=== PATIENT | female | born 1965 | race Caucasian/White ===

== ENCOUNTER 2021-07-05 17:56 | Inpatient (IN) | payer OTHER, SELFPAY ==
[~2021-07-05] VITALS: Ht 147.3 cm; Wt 79.4 kg
--- NOTE | 2021-07-05 18:00 | NUR ---
Patient triaged and placed in waiting room. VSS and patient appears in no acute distress at this time. Accompanied by family, awaiting available bed, and MD notified of need for MSE.
--- NOTE | 2021-07-05 18:05 | NUR ---
Pt brought by daughter, A&Ox4 , pt presents to ER with lower back pain, fever and weakness, skin pink and warm, respirations even and unlabored, cap refill <3, will cont to monitor.
[2021-07-05 18:06] VITALS: BP_SYST 117
--- NOTE | 2021-07-05 18:45 | NUR ---
Dr Kidd evaluating patient at bedside
--- NOTE | 2021-07-05 22:00 | NUR ---
Received patient to ER w/ c/o lower back pain since yesterday and fever since Saturday after receiving Pfizer vaccine. Introduced self to patient, positioned for comfort. Bed to low position sr up, cooling measures in effect. Patient resting quietly. No acute distress noted. Vital signs within normal range.
--- NOTE | 2021-07-05 22:00 | NUR ---
Placed in room 04 . Placed on cardiac specialist, blood pressure machine and pulse oximeter. To gown for exam. Side rails up.
--- NOTE | 2021-07-05 22:15 | NUR ---
# 22 gauge angiocath placed to RAC. Use of asceptic technique. Opsite placed over site. Blood return noted. Blood for lab drawn from site. Flushed with 10 cc of normal saline. No evidence of infiltration noted. Patient tolerated well.
[2021-07-05 23:02] LABS: BILIRUBIN,URINE NEGATIVE (NEGATIVE); BLOOD, URINE NEGATIVE (NEGATIVE); CLARITY/URINE TURBID (CLEAR); COLOR,URINE YELLOW (YELLOW); GLUCOSE,URINE 2+ (NEGATIVE); KETONES,URINE 1+ (NEGATIVE); LEUKOCYTE ESTERASE ,URINE TRACE (NEGATIVE); NITRITE, URINE NEGATIVE (NEGATIVE); PROTEIN URINE 1+ (NEGATIVE); UROBILINOGEN,URINE 0.2 (0.2-1.0)
[2021-07-05 23:13] LABS: BASOPHILS % (AUTO) 0.3 % (0.0-2.0); HEMATOCRIT 42.7 % (36-48); HEMOGLOBIN 14.9 g/dL (12.0-16.0); LYMPHOCYTES # (AUTO) 0.6 K/uL (1.0-5.5); MEAN CORPUSCULAR HEMOGLOBIN 29 pg (27-31); MEAN CORPUSCULAR HGB CONC 35 % (32-36); MEAN CORPUSCULAR VOLUME 82 fL (79.0-98.0); MONOCYTES # (AUTO) 0.4 K/uL (0.0-1.0); MONOCYTES % (AUTO) 6.3 % (1.7-9.3); NEUTROPHILS # (AUTO) 5.3 K/uL (1.8-7.7); NEUTROPHILS % (AUTO) 84.4 % (40.0-70.0); PLATELET COUNT (AUTO) 175 K/uL (130-430); RED BLOOD CELL COUNT(AUTO) 5.19 MIL/uL (4.2-6.2); RED CELL DISTRIBUTION WIDTH 13.1 % (9.0-15.0); WHITE BLOOD COUNT (AUTO) 6.3 K/uL (4.8-10.8)
[2021-07-05 23:54] LABS: CALCIUM 8.4 mg/dL (8.4-11.0); CREATININE 0.82 mg/dL (0.55-1.30); POTASSIUM 3.3 mmol/L (3.5-5.1)
[2021-07-06] LABS: ALBUMIN 3.5 g/dL (3.4-4.8); C-REACTIVE PROTEIN QUANT 3.4 mg/dL (0-0.5); TOTAL BILIRUBIN 0.6 mg/dL (0.0-1.0)
[2021-07-06 00:02] LABS: PROTHROMBIN TIME 10.6 SECS (9.5-12.5)
--- NOTE | 2021-07-06 00:30 | NUR ---
Patient resting quietly. No acute distress noted. Vital signs within normal range. awaiting MD kendall.
[2021-07-06 00:45] LABS: BACTERIA,URINE MODERATE /HPF (None Seen); WBC,URINE 20-50 /HPF (0-3)
[2021-07-06] MEDS ORDERED: NACL 0.9% 1,000 ML IV ONE (01:30)
[2021-07-06] MEDS ORDERED: cefTRIAXone 1 GM IVPB PREMIX 50 ML IV ONE ×2 (01:30→01:40)
--- NOTE | 2021-07-06 01:40 | NUR ---
Medicated w/ 1gm rocephin ivpb per MD orders. IVF w/ NS 0.9% bolus infusing with no s/s of infiltration at this time. Will cont to monitor and observe for any adverse reaction. Bed to low position sr up. continue to monitor.
[2021-07-06] MEDS ORDERED: MORPHINE 4 MG INJ. 4 MG/ML VIAL IVP ONE (02:00)
--- NOTE | 2021-07-06 02:03 | NUR ---
Medicated w/ 4mg of Morphine ivp to RAC per MD orders. IVF NS 0.9% infusing with no s/s of infiltration at this time. Will cont to monitor and observe for any adverse reaction. continue to monitor.
--- NOTE | 2021-07-06 03:08 | NUR ---
Medicated w/ tylenol 650mg per MD orders for temp of 102.9 orally. IV site with no s/s of infiltration at this time. Will cont to monitor and observe for any adverse reaction
[2021-07-06] MEDS ORDERED: ACETAMINOPHEN 325 MG TABLET ONE (03:09)
[2021-07-06] MEDS ORDERED: KCL 20 mEq in NS 1000 mL 1,000 ML IV ONE (03:48)
[2021-07-06] MEDS: ACETAMINOPHEN 325 MG TABLET PO PRN ×3 (03:56→22:40)
[2021-07-06] MEDS: KCL 20 mEq in NS 1000 mL 1,000 ML IV SCH ×3 (03:58→21:22)
--- NOTE | 2021-07-06 06:19 | NUR ---
Patient resting quietly. No acute distress noted. Vital signs within normal range.
[2021-07-06] MEDS ORDERED: INSULIN REGULAR, HUMAN 10 UNITS/0.1 ML INJ ONE ×2 (07:21→11:40)
[2021-07-06] MEDS: INSULIN REGULAR, HUMAN 100 UNITS/ML, 10 ML VIAL (humuLIN R) SUBCUT SCH ×4 (07:24→22:54)
[2021-07-06 07:40] LABS: CALCIUM 7.3 mg/dL (8.4-11.0); CREATININE 0.62 mg/dL (0.55-1.30); POTASSIUM 3.1 mmol/L (3.5-5.1)
--- NOTE | 2021-07-06 07:54 | NUR ---
Pt given breakfast tray.
[2021-07-06] MEDS: ENOXAPARIN SODIUM 40 MG/0.4 ML SYRINGE SUBCUT SCH (09:35)
--- NOTE | 2021-07-06 10:01 | NUR ---
Pt asleep in [facility] VSS no distress noted.
--- NOTE | 2021-07-06 11:04 | NUR ---
Pt asleep in [facility] VSS no distress noted.
--- NOTE | 2021-07-06 12:23 | NUR ---
Patient will be admitted to care of Dr. Klein. Admitted to med-surg unit. Will go to room 134B. Belongings list completed. Complete and up to date summary report printed. SBAR report to be given at bedside with opportunity for questions.
[2021-07-06 12:35] VITALS: BP_SYST 145
--- NOTE | 2021-07-06 12:38 | NUR ---
ADMISSION NOTE Received patient from ER via yovani, received report from Ai PRADO. Patient admitted with diagnosis of New Onset DM. Patient oriented to hospital routine, call light, toileting and safety-patient verbalized understanding.
--- NOTE | 2021-07-06 14:24 | NUR ---
PATIENT AMBULATES WELL TO THE BATHROOM WITH IV POLE INDEPENDENTLY.
--- NOTE | 2021-07-06 15:57 | NUR ---
new IV access: Right AC IV site is leaking, remove it , and restart a new IV site on right forearm #20G. Restart IVF back with the same rate.
[2021-07-06 16:17] VITALS: BP_SYST 111
--- NOTE | 2021-07-06 18:38 | NUR ---
Closing note: Patient is stable, no sign of distress. No fever after Tylenol given. Patient tolerates oral diet well, no N/V, on NS + 20 mEq of KCL IVF at 100 ml/hr.
[2021-07-06 20:00] VITALS: BP_SYST 158
--- NOTE | 2021-07-06 20:00 | NUR ---
OPENING NOTE RECEIVED REPORT FROM DAY RN. PATIENT IN BED WITH RESPIRATIONS EVEN AND UNLABORED ON RA. PT CURRENTLY DENIES SOB. PT C/O PAIN TO LOWER BACK. RIGHT FOREARM 20G IV PATENT AND INTACT RUNNING IVF. NO SIGNS OF INFILTRATION NOTED. BED IN LOWEST AND LOCKED POSITION. SAFETY PRECAUTIONS IN PLACE. WILL CONTINUE TO MONITOR.
[2021-07-06] MEDS: cefTRIAXone 1 GM in D5W 50 ML IV SCH (21:21)
--- NOTE | 2021-07-06 23:45 | NUR ---
DR. CHE AT BEDSIDE SPOKE WITH PT. PLACED ORDERS.
[2021-07-07] VITALS (7 sets, daily range): BP systolic 126–156
[2021-07-07] MEDS ORDERED: DEXAMETHASONE SOD PHOSPHATE 10 MG/ML VIAL IVP SCH
--- NOTE | 2021-07-07 | NUR ---
GLUCOMETER CHECK GLUCOSE 217. 4 UNITS GIVEN PER SLIDING SCALE.
[2021-07-07] MEDS: CHOLECALCIFEROL (VITAMIN D3) 5,000 UNIT TABLET PO SCH ×2 (01:15→08:31)
[2021-07-07] MEDS: ASCORBIC ACID 500 MG TABLET PO SCH ×3 (01:16→21:15)
[2021-07-07] MEDS: traMADol HCL HCL 50 MG TABLET (ULTRAM) PO PRN ×3 (01:16→21:19)
--- NOTE | 2021-07-07 02:46 | NUR ---
DAUGHTER CALLED UPDATED DAUGHTER ON PATIENT. PT WILL CALL IN MORNING FOR UPDATES
--- NOTE | 2021-07-07 05:52 | NUR ---
CONSULTATION PAGED/CALLED Reason for Consultation: COVID 19 INFECTION Person Who was Notified: TAISHA Consulting Physician: COLT Snuff Container Inspector Specialty: Ordering Physician: CHINEDU
[2021-07-07] MEDS: INSULIN REGULAR, HUMAN 100 UNITS/ML, 10 ML VIAL (humuLIN R) SUBCUT SCH ×4 (06:26→21:16)
[2021-07-07 07:08] LABS: BASOPHILS % (AUTO) 0.4 % (0.0-2.0); HEMATOCRIT 39.2 % (36-48); HEMOGLOBIN 13.5 g/dL (12.0-16.0); LYMPHOCYTES # (AUTO) 0.4 K/uL (1.0-5.5); LYMPHOCYTES % (AUTO) 8.5 % (20.5-51.5); MEAN CORPUSCULAR HEMOGLOBIN 28 pg (27-31); MEAN CORPUSCULAR HGB CONC 34 % (32-36); MEAN CORPUSCULAR VOLUME 82 fL (79.0-98.0); MONOCYTES # (AUTO) 0.2 K/uL (0.0-1.0); MONOCYTES % (AUTO) 3.1 % (1.7-9.3); NEUTROPHILS # (AUTO) 4.4 K/uL (1.8-7.7); PLATELET COUNT (AUTO) 156 K/uL (130-430); RED BLOOD CELL COUNT(AUTO) 4.76 MIL/uL (4.2-6.2); RED CELL DISTRIBUTION WIDTH 12.6 % (9.0-15.0)
[2021-07-07 07:34] LABS: CREATININE 0.53 mg/dL (0.55-1.30); PHOSPHORUS 2.9 mg/dL (2.7-4.5); POTASSIUM 4.2 mmol/L (3.5-5.1)
--- NOTE | 2021-07-07 07:40 | NUR ---
OPENING NOTES: RECEIVED PATIENT FROM NUTRITION PROFESSOR NURSE. PATIENT IS AWAKE LAYING DOWN IN BED. TOLERATED OXYGEN ON ROOM AIR WITH NO DISTRESS NOTED. IV LINE PATENT AND INTACT. PATIENT STABLE AT THIS TIME. SAFETY, FALL, AND ASPIRATION PRECAUTIONS ARE IN PLACE. BED LOCKED IN LOWEST POSITION AND CALL LIGHT IN REACH. WILL CONTINUE TO MONITOR PATIENT FOR ANY CHANGES.
[2021-07-07] MEDS: ENOXAPARIN SODIUM 40 MG/0.4 ML SYRINGE SUBCUT SCH (08:30)
[2021-07-07] MEDS: KCL 20 mEq in NS 1000 mL 1,000 ML IV SCH ×2 (08:39→17:19)
--- NOTE | 2021-07-07 10:40 | NUR ---
DR. CHE ORDERED PCR COVID TEST.
--- NOTE | 2021-07-07 11:13 | NUR ---
Nutrition Update Ruben Scale 18 noted. Pt admitted for new onset DM, UTI. Diet: [facility] BMI: 36.6 kg/m2 RD to follow per nutrition care standards.
[2021-07-07] MEDS: metFORMIN HCL 500 MG TABLET PO SCH (17:07)
--- NOTE | 2021-07-07 17:13 | NUR ---
Dietitian Recommendations * [facility] Gluc[facility] B[facility] (ONS provides 440 kcal/day, 40 gm protein/day) * Encourage increase PO intakes LP, RD Please refer to Nutrition Assessment for details. Addendum: 07/07/21 at [address] Amended: Links added.
[2021-07-07] MEDS ORDERED: IVERMECTIN 3 MG TABLET PO ONE (17:30)
[2021-07-07] MEDS: AZITHROMYCIN 500 MG in NS 250 ML IV SCH (18:31)
--- NOTE | 2021-07-07 18:40 | NUR ---
CLOSING NOTES: PATIENT IS AWAKE LAYING DOWN IN BED. TOLERATED OXYGEN ON ROOM AIR WITH NO DISTRESS NOTED. IV LINE PATENT AND INTACT. PATIENT STABLE AT THIS TIME. SAFETY, FALL, AND ASPIRATION PRECAUTIONS REMAINED IN PLACE. BED LOCKED IN LOWEST POSITION AND CALL LIGHT IN REACH. WILL ENDORSE PATIENT CARE TO ONCOMING CLOCK AND WATCH HANDS PAINTER NURSE.
--- NOTE | 2021-07-07 19:15 | NUR ---
change of shift.pt.presents isolation status;droplet;covid19+status.pt.presents quiescent affect calm,resting.pt.presents iv access intact iv fluids infusing.pt.presents no c/o pain,nausea.pt.capable to reposition self/ambulate.pt.refused o2 therapy via nasal cannulae.respiratory status unlabored.call light w/in access of the pt.
--- NOTE | 2021-07-07 20:00 | NUR ---
p.assessed.v/s assessed note temp elevated.to f/u r/e temp status.o2 sat=91%@room air.i have apprised the pt.of the low sat%status possible o2 therapy necessity to f/u r/e o2-sat% o2 therapy.i have apprised the pt.that snacks/beverages are available w/in the shift.no requests posited@this hour.iv access intact iv fluids infusing.call light w/in access of the pt.
--- NOTE | 2021-07-07 20:30 | NUR ---
i have assessed the blood glucose value 166mg/dl.i have apprised the pt.of the blood glucose value and the necessity for the administration insulin per sliding scale.
--- NOTE | 2021-07-07 21:00 | NUR ---
2100pmedications administered.insulin:regular 2 units administered.pt.had requested medication;pain.i have administered ultram: 50mg tab po.to assess the efficacy of the pain medication per pain mgx protocol.pt.had requested ice water x2 pitchers provided pt.had ambulated to the restroom gait assessed wnl.pt.presented low sat%=92%@room air i have applied o2 therapy@2/lmin via nasal cannulae.pt.presented temp.i have administered tylenol:650mg.to assess the efficacy re temp protocol.call light placed w/in access of the pt.
[2021-07-07] MEDS: cefTRIAXone 1 GM in D5W 50 ML IV SCH (21:13)
[2021-07-07] MEDS: TEMAZEPAM 15 MG CAPSULE PO SCH (21:14)
[2021-07-07] MEDS: ACETAMINOPHEN 325 MG TABLET PO PRN (21:14)
--- NOTE | 2021-07-07 22:00 | NUR ---
pt.assessed.pt.presents quiescent affect somnolent.per flacc pain mgx pt.absent facial grimaces/body posturing.o2-sat%=96%. iv access intact iv fluids infusing.pt.capable to reposition self.call light w/in access of the pt.
[2021-07-08] VITALS: BP_SYST 145
--- NOTE | 2021-07-08 | NUR ---
pt.assessed.v/s assessed values wnl.o2-sat%=96%.iv access intact iv fluids infusing.no c/o pain,nausea.no requests posited @this hour.iv access intact iv fluids infusing.call light w/in access of the pt.
--- NOTE | 2021-07-08 02:00 | NUR ---
pt.assessed.pt.presents quiescent affect somnolent.per flacc pain mgx pt.absent facial grimaces/body posturing.o2-sat%=96%. pt.capable to reposition self.call light w/in access of the pt.
--- NOTE | 2021-07-08 04:00 | NUR ---
pt.assessed.pt.presents quiesent affect somnolent.iv access intact iv fluids infusing.per flacc pain mgx pt.absent facial grimaces/body posturing.pt.capable to reposition self.o2-sat%=96%.call light w/in access of the pt.
[2021-07-08] MEDS: KCL 20 mEq in NS 1000 mL 1,000 ML IV SCH ×2 (05:41→15:49)
[2021-07-08] MEDS: INSULIN REGULAR, HUMAN 100 UNITS/ML, 10 ML VIAL (humuLIN R) SUBCUT SCH ×4 (05:55→21:00)
--- NOTE | 2021-07-08 06:25 | NUR ---
pt.assessed.blood glucose assessed value 201mg/dl.i have administered insulin;regular:4-units.no c/o pain,nausea.pt.had requested juice apple provided.pt.capable to reposition self.iv access intact iv fluids infusing.call light w/in access of the pt.
[2021-07-08] MEDS: BUDESONIDE 0.5 MG/2 ML AMPUL.NEB INH SCH ×2 (07:00→19:00)
[2021-07-08 08:00] VITALS: BP_SYST 144
--- NOTE | 2021-07-08 08:00 | NUR ---
OPENING NOTE PATIENT FOUND SITTING IN BED, WITH NO COMPLAINTS AND MILD PAIN TO RIGHT HIP. BREAKFAST TRAY WAS DELIVERED AND VS OBTAINED. NO SIGNS OF DISTRESS NOTED. BED IN LOWEST POSITION, LOCKED, TWO RAILS UP AND CALL LIGHT IN REACH. WILL CONTINUE TO MONITOR.
[2021-07-08] MEDS: CHOLECALCIFEROL (VITAMIN D3) 5,000 UNIT TABLET PO SCH (08:32)
[2021-07-08] MEDS: ASCORBIC ACID 500 MG TABLET PO SCH ×2 (08:32→22:06)
[2021-07-08] MEDS: metFORMIN HCL 500 MG TABLET PO SCH ×2 (08:32→17:28)
[2021-07-08] MEDS: ENOXAPARIN SODIUM 40 MG/0.4 ML SYRINGE SUBCUT SCH (08:40)
[2021-07-08 12:00] VITALS: BP_SYST 148
--- NOTE | 2021-07-08 12:30 | NUR ---
Nursing note Patient found lying in bed with no complaints. VS obtained and meal tray delivered. Patient has no complaints at this time. will continue to monitor.
[2021-07-08 16:00] VITALS: BP_SYST 144
[2021-07-08] MEDS: AZITHROMYCIN 500 MG in NS 250 ML IV SCH (17:35)
--- NOTE | 2021-07-08 18:48 | NUR ---
Nursing Note Patient complains of pain to IV site, JOHAN Avitia went to assist patient. IV antibiotic rate was lowered from 250ml/hr to 200ml/hr. will continue to monitor.
--- NOTE | 2021-07-08 19:51 | NUR ---
Closing Note Patient is resting in bed, with no signs of distress noted. Call light in reach, bed locked and lowest position and two rails are up. fall, safety and aspiration precautions in place. Patient stated she has not had a BM in four days and would like some medication to help with a BM, shift supervisor melting RN notified. Will endorse to shift supervisor melting.
[2021-07-08 20:00] VITALS: BP_SYST 143
--- NOTE | 2021-07-08 21:35 | NUR ---
ULTRAM 50 MG po administer for acute GENERAL pain comfort measures implemented & helpful .
[2021-07-08] MEDS: cefTRIAXone 1 GM in D5W 50 ML IV SCH (22:06)
[2021-07-08] MEDS: TEMAZEPAM 15 MG CAPSULE PO SCH (22:06)
[2021-07-08] MEDS: traMADol HCL HCL 50 MG TABLET (ULTRAM) PO PRN (22:07)
[2021-07-09 00:25] VITALS: BP_SYST 137
--- NOTE | 2021-07-09 00:41 | NUR ---
Hourly Rounding patient Resting HOB elevated is verbally Responsive call thorne given to patient chest movement symmetrical .
[2021-07-09] MEDS: KCL 20 mEq in NS 1000 mL 1,000 ML IV SCH ×3 (00:46→22:03)
--- NOTE | 2021-07-09 05:39 | NUR ---
Patient Resting Hourly Rounding HOB is elevated verbally Responsive on NC @ 2 LPM 02 SAT 95 % chest movement symmetrical , monitor .
[2021-07-09] MEDS: INSULIN REGULAR, HUMAN 100 UNITS/ML, 10 ML VIAL (humuLIN R) SUBCUT SCH ×4 (06:03→21:00)
[2021-07-09 08:00] VITALS: BP_SYST 148
--- NOTE | 2021-07-09 08:00 | NUR ---
OPENING NOTE PATIENT FOUND SITTING IN BED, WITH NO COMPLAINTS, PAIN OR DISTRESS. BREAKFAST TRAY WAS DELIVERED AND VS OBTAINED. BED IN LOWEST POSITION, LOCKED, TWO RAILS UP AND CALL LIGHT IN REACH. WILL CONTINUE TO MONITOR.
[2021-07-09] MEDS: CHOLECALCIFEROL (VITAMIN D3) 5,000 UNIT TABLET PO SCH (09:01)
[2021-07-09] MEDS: metFORMIN HCL 500 MG TABLET PO SCH ×2 (09:01→17:02)
[2021-07-09] MEDS: ASCORBIC ACID 500 MG TABLET PO SCH ×2 (09:01→22:01)
[2021-07-09] MEDS: ENOXAPARIN SODIUM 40 MG/0.4 ML SYRINGE SUBCUT SCH (09:02)
[2021-07-09 11:35] LABS: BASOPHILS # (AUTO) 0.1 K/uL (0.0-0.2); EOSINOPHILS % (AUTO) 0.2 % (0.0-4.0); HEMATOCRIT 37.4 % (36-48); LYMPHOCYTES # (AUTO) 0.8 K/uL (1.0-5.5); LYMPHOCYTES % (AUTO) 10.1 % (20.5-51.5); MEAN CORPUSCULAR HEMOGLOBIN 28 pg (27-31); MEAN CORPUSCULAR HGB CONC 35 % (32-36); MEAN CORPUSCULAR VOLUME 81 fL (79.0-98.0); MONOCYTES # (AUTO) 0.5 K/uL (0.0-1.0); MONOCYTES % (AUTO) 6.4 % (1.7-9.3); NEUTROPHILS # (AUTO) 6.4 K/uL (1.8-7.7); NEUTROPHILS % (AUTO) 82.3 % (40.0-70.0); PLATELET COUNT (AUTO) 189 K/uL (130-430); RED BLOOD CELL COUNT(AUTO) 4.61 MIL/uL (4.2-6.2); RED CELL DISTRIBUTION WIDTH 13.1 % (9.0-15.0); WHITE BLOOD COUNT (AUTO) 7.7 K/uL (4.8-10.8)
[2021-07-09 11:56] LABS: ALBUMIN 2.5 g/dL (3.4-4.8); CALCIUM 7.9 mg/dL (8.4-11.0); CREATININE 0.45 mg/dL (0.55-1.30); POTASSIUM 3.2 mmol/L (3.5-5.1); TOTAL BILIRUBIN 0.5 mg/dL (0.0-1.0)
[2021-07-09 12:00] VITALS: BP_SYST 147
--- NOTE | 2021-07-09 12:00 | NUR ---
Nursing note Patient found sitting in bed with no complaints or distress.VS obtained and BS checked. BS of 191, patient received 2 units of insulin. Meal tray was delivered. will continue to monitor.
[2021-07-09 16:00] VITALS: BP_SYST 145
[2021-07-09] MEDS: AZITHROMYCIN 500 MG in NS 250 ML IV SCH (17:42)
--- NOTE | 2021-07-09 19:38 | NUR ---
closing note Patient is resting in bed, with no signs of distress noted. Call light in reach, bed locked and lowest position and two rails are up. fall, safety and aspiration precautions in place. Will endorse to night shift supervisor.
[2021-07-09 20:30] VITALS: BP_SYST 143
--- NOTE | 2021-07-09 21:25 | NUR ---
Ultram 50 MG po administer for General pain aches & pains cold packs also helpful .
[2021-07-09] MEDS: TEMAZEPAM 15 MG CAPSULE PO SCH (22:01)
[2021-07-09] MEDS: cefTRIAXone 1 GM in D5W 50 ML IV SCH (22:02)
[2021-07-09] MEDS: traMADol HCL HCL 50 MG TABLET (ULTRAM) PO PRN (22:04)
--- NOTE | 2021-07-10 00:15 | NUR ---
BSG blood sugar glucose 129 mg dl , JUICE po given per patient Request no DIABETIC Reactions noted skin dry also warm / .
[2021-07-10 01:00] VITALS: BP_SYST 135
--- NOTE | 2021-07-10 04:31 | NUR ---
Hourly Rounding patient Resting HOB elevated assist for position change off loading with pillows comfort measures helpful .
[2021-07-10] MEDS: KCL 20 mEq in NS 1000 mL 1,000 ML IV SCH ×2 (06:45→16:52)
[2021-07-10] MEDS: INSULIN REGULAR, HUMAN 100 UNITS/ML, 10 ML VIAL (humuLIN R) SUBCUT SCH ×4 (06:47→21:00)
[2021-07-10 08:00] VITALS: BP_SYST 136
--- NOTE | 2021-07-10 08:00 | NUR ---
A/Ox4, on 2L . POC is explained. Call light in place, bed locked at the lowest position, will continue to monitor.
[2021-07-10] MEDS: CHOLECALCIFEROL (VITAMIN D3) 5,000 UNIT TABLET PO SCH (08:08)
[2021-07-10] MEDS: ASCORBIC ACID 500 MG TABLET PO SCH ×2 (08:08→22:51)
[2021-07-10] MEDS: metFORMIN HCL 500 MG TABLET PO SCH ×2 (08:08→16:51)
[2021-07-10] MEDS: ENOXAPARIN SODIUM 40 MG/0.4 ML SYRINGE SUBCUT SCH (08:09)
[2021-07-10 08:20] LABS: BASOPHILS % (AUTO) 0.4 % (0.0-2.0); EOSINOPHILS # (AUTO) 0.1 K/uL (0.0-0.4); EOSINOPHILS % (AUTO) 2.1 % (0.0-4.0); HEMATOCRIT 37.3 % (36-48); HEMOGLOBIN 12.8 g/dL (12.0-16.0); LYMPHOCYTES % (AUTO) 17.7 % (20.5-51.5); MEAN CORPUSCULAR HEMOGLOBIN 28 pg (27-31); MEAN CORPUSCULAR HGB CONC 34 % (32-36); MEAN CORPUSCULAR VOLUME 81 fL (79.0-98.0); MONOCYTES # (AUTO) 0.5 K/uL (0.0-1.0); MONOCYTES % (AUTO) 8.8 % (1.7-9.3); NEUTROPHILS # (AUTO) 3.9 K/uL (1.8-7.7); PLATELET COUNT (AUTO) 202 K/uL (130-430); RED BLOOD CELL COUNT(AUTO) 4.58 MIL/uL (4.2-6.2); RED CELL DISTRIBUTION WIDTH 12.8 % (9.0-15.0); WHITE BLOOD COUNT (AUTO) 5.5 K/uL (4.8-10.8)
--- NOTE | 2021-07-10 11:00 | NUR ---
Patient is on RA. No distress noted.
[2021-07-10 11:04] LABS: ALBUMIN 2.5 g/dL (3.4-4.8); CALCIUM 8.4 mg/dL (8.4-11.0); CREATININE 0.49 mg/dL (0.55-1.30); POTASSIUM 3.6 mmol/L (3.5-5.1); TOTAL BILIRUBIN 0.5 mg/dL (0.0-1.0)
[2021-07-10 12:00] VITALS: BP_SYST 141
[2021-07-10 16:00] VITALS: BP_SYST 136
--- NOTE | 2021-07-10 16:00 | NUR ---
Dr. Bynum is called in regards to an order. Order clarified.
[2021-07-10] MEDS: AZITHROMYCIN 500 MG in NS 250 ML IV SCH (16:51)
[2021-07-10] MEDS: IVERMECTIN 3 MG TABLET PO SCH (16:52)
[2021-07-10 20:30] VITALS: BP_SYST 132
--- NOTE | 2021-07-10 21:15 | NUR ---
Patient awake alert sitting up in bed 02 SAT 95 % Respirations Regular also unlabored assist encourage position change no SOB noted chest movemet symmetrical also unlabored / .
[2021-07-10] MEDS: cefTRIAXone 1 GM in D5W 50 ML IV SCH (22:51)
[2021-07-10] MEDS: traMADol HCL HCL 50 MG TABLET (ULTRAM) PO PRN (22:52)
[2021-07-10] MEDS: TEMAZEPAM 15 MG CAPSULE PO SCH (22:52)
--- NOTE | 2021-07-11 | NUR ---
ULTRAM 50 MG PO GIVEN FOR ACUTE PAIN & HELPFUL off loading with pillows comfort measures implemented activity tolerated .
[2021-07-11 00:42] VITALS: BP_SYST 141
--- NOTE | 2021-07-11 01:56 | NUR ---
Hourly Rounding patient Resting HOB elevated call thorne given to patient chest movement symmetrical 02 SAT 95 %
[2021-07-11] MEDS: KCL 20 mEq in NS 1000 mL 1,000 ML IV SCH ×3 (04:11→20:22)
--- NOTE | 2021-07-11 04:12 | NUR ---
Patient Resting verbally Responsive HOB elevated 02 SAT 94 % chest movement Remains symmetrical & unlabored .
[2021-07-11] MEDS: INSULIN REGULAR, HUMAN 100 UNITS/ML, 10 ML VIAL (humuLIN R) SUBCUT SCH ×4 (06:01→20:23)
[2021-07-11] MEDS: BUDESONIDE 0.5 MG/2 ML AMPUL.NEB INH SCH ×2 (07:00→19:00)
[2021-07-11 08:00] VITALS: BP_SYST 127
--- NOTE | 2021-07-11 08:00 | NUR ---
Opening Note RECEIVED REPORT FROM nightshift RN. PATIENT IN BED WITH RESPIRATIONS EVEN AND UNLABORED ON RA. PT CURRENTLY DENIES SOB. PT C/O PAIN TO LOWER BACK. RIGHT FOREARM 20G IV PATENT AND INTACT RUNNING IVF. NO SIGNS OF INFILTRATION NOTED. BED IN LOWEST AND LOCKED POSITION. SAFETY PRECAUTIONS IN PLACE. WILL CONTINUE TO MONITOR.
[2021-07-11] MEDS: CHOLECALCIFEROL (VITAMIN D3) 5,000 UNIT TABLET PO SCH (09:29)
[2021-07-11] MEDS: ASCORBIC ACID 500 MG TABLET PO SCH ×2 (09:29→20:21)
[2021-07-11] MEDS: metFORMIN HCL 500 MG TABLET PO SCH ×2 (09:29→16:38)
[2021-07-11] MEDS: IVERMECTIN 3 MG TABLET PO SCH (09:30)
--- NOTE | 2021-07-11 10:30 | NUR ---
Dr Jagdish Dubon discussed plan of care, cleared on his standpoint, will discuss D/C planning with Dr. Cantor
[2021-07-11 12:10] VITALS: BP_SYST 133
[2021-07-11] MEDS: ENOXAPARIN SODIUM 40 MG/0.4 ML SYRINGE SUBCUT SCH (12:35)
[2021-07-11] MEDS: AZITHROMYCIN 500 MG in NS 250 ML IV SCH (16:39)
[2021-07-11 16:48] VITALS: BP_SYST 132
--- NOTE | 2021-07-11 18:37 | NUR ---
Closing Note Patient is resting in bed, with no signs of distress noted. Call light in reach, bed locked and lowest position and two rails are up. fall, safety and aspiration precautions in place. Will endorse to hourly shift. Attempted to wean off oxygen 2 liters NC desatted to 87%,reapplied 2 liters NC
--- NOTE | 2021-07-11 19:30 | NUR ---
Opening note Received report from day shift RN. Pt is awake lying in bed. No s/s of respiratory distress. On 2L NC, tolerating well. IV site is intact and patent. Fall and safety precautions in place with bed in lowest position and call light within reach. Will continue to monitor.
[2021-07-11 20:00] VITALS: BP_SYST 157
[2021-07-11] MEDS: TEMAZEPAM 15 MG CAPSULE PO SCH (20:22)
[2021-07-11] MEDS: cefTRIAXone 1 GM in D5W 50 ML IV SCH (20:22)
[2021-07-12] VITALS: BP_SYST 131
--- NOTE | 2021-07-12 00:30 | NUR ---
RN rounds Pt is sleeping. No s/s of respiratory distress. Still on 2L NC, tolerating well. Will continue to monitor.
--- NOTE | 2021-07-12 04:31 | NUR ---
RN rounds Pt is still sleeping. No s/s of respiratory distress. No needs at this time. Will continue to monitor.
[2021-07-12] MEDS: KCL 20 mEq in NS 1000 mL 1,000 ML IV SCH (06:23)
[2021-07-12] MEDS: INSULIN REGULAR, HUMAN 100 UNITS/ML, 10 ML VIAL (humuLIN R) SUBCUT SCH ×2 (06:30→11:30)
[2021-07-12] MEDS: ACETAMINOPHEN 325 MG TABLET PO PRN (06:33)
--- NOTE | 2021-07-12 06:54 | NUR ---
Closing note Pt is awake in bed, c/o mild in back. tylenol given. Still on 2L NC, tolerating well. No s/s of respiratory distress. All needs met throughout shift. Fall and safety precaution are in place with bed in lowest position and call light within reach. Will continue to monitor until endorsed to day shift.
[2021-07-12] MEDS: BUDESONIDE 0.5 MG/2 ML AMPUL.NEB INH SCH ×2 (07:00→19:00)
[2021-07-12 08:00] VITALS: BP_SYST 134
--- NOTE | 2021-07-12 08:00 | NUR ---
PATIENT IN ROOM, A/OX4, NO S/S OF DISTRESS, BED IN LOWEST LOCKED POSITION, CALL LIGHT WITHIN REACH, EDUCATED PATIENT TO TRY AND WEAN OFF OF OXYGEN TODAY, REMOVED OXYGEN AND MONITORED SATURATION WHILE LYING IN BED WAS 90-93%, IV INTACT PATENT, NO PAIN OR COMPLAINTS AT THIS TIME, SAFETY MEASURES IN PLACE, WILL CONTINUE TO MONITOR.
[2021-07-12] MEDS: ASCORBIC ACID 500 MG TABLET PO SCH (08:24)
[2021-07-12] MEDS: IVERMECTIN 3 MG TABLET PO SCH (08:24)
[2021-07-12] MEDS: metFORMIN HCL 500 MG TABLET PO SCH (08:24)
[2021-07-12] MEDS: CHOLECALCIFEROL (VITAMIN D3) 5,000 UNIT TABLET PO SCH (08:24)
[2021-07-12] MEDS: ENOXAPARIN SODIUM 40 MG/0.4 ML SYRINGE SUBCUT SCH (08:25)
[2021-07-12 09:04] LABS: BASOPHILS % (AUTO) 0.4 % (0.0-2.0); EOSINOPHILS # (AUTO) 0.2 K/uL (0.0-0.4); EOSINOPHILS % (AUTO) 2.7 % (0.0-4.0); HEMOGLOBIN 12.8 g/dL (12.0-16.0); LYMPHOCYTES # (AUTO) 0.8 K/uL (1.0-5.5); LYMPHOCYTES % (AUTO) 12.5 % (20.5-51.5); MEAN CORPUSCULAR HEMOGLOBIN 28 pg (27-31); MEAN CORPUSCULAR HGB CONC 35 % (32-36); MEAN CORPUSCULAR VOLUME 82 fL (79.0-98.0); MONOCYTES # (AUTO) 0.6 K/uL (0.0-1.0); MONOCYTES % (AUTO) 8.7 % (1.7-9.3); NEUTROPHILS % (AUTO) 75.7 % (40.0-70.0); PLATELET COUNT (AUTO) 298 K/uL (130-430); RED BLOOD CELL COUNT(AUTO) 4.54 MIL/uL (4.2-6.2); RED CELL DISTRIBUTION WIDTH 12.7 % (9.0-15.0); WHITE BLOOD COUNT (AUTO) 6.6 K/uL (4.8-10.8)
[2021-07-12 09:33] LABS: CALCIUM 8.4 mg/dL (8.4-11.0); CREATININE 0.44 mg/dL (0.55-1.30); POTASSIUM 3.5 mmol/L (3.5-5.1)
[2021-07-12 12:00] VITALS: BP_SYST 148
--- NOTE | 2021-07-12 12:00 | NUR ---
PATIENT RESTING IN BED, TOLERATING STAYING OFF OF OXYGEN WHILE IN BED, EDUCATED THAT WILL TRY TO AMBULATE LATER IN THE SHIFT TO SEE IF SHE TOLERATES IT ON ROOM AIR, PROVIDED LUNCH AND SET UP IN BED, ANSWERED ALL PATIENT QUESTIONS.
[2021-07-12 16:00] VITALS: BP_SYST 142
--- NOTE | 2021-07-12 16:00 | NUR ---
HAD PATIENT AMBULATE OFF OF OXYGEN, TOLERATED WELL, O2 SATURATION STAYED AT 93% WHILE AMBULATING FOR 2 MINUTES, ONCE BACK IN BED WENT UP TO 95%. PATIENT ASKED IF THAT MEANT SHE WAS READY TO LEAVE BUT EDUCATED THAT SHE IS RECEIVING 5 DOSES OF INVERMECTAN AND HAS ONLY HAD 3 AT THIS TIME, WILL FOLLOW UP WITH MD.
--- NOTE | 2021-07-12 16:06 | NUR ---
Nutrition F/U Admitting Diagnosis New onset DM, UTI Reviewed Pertinent Medical/Surgical Hx Medical Record Medical History Comment: PMH: none per physician notes Pt also found w/ acute COVID-19 viral infection per physician notes SARS-CoV-2 Ag (Rapid) Positive 07/06, (PCR) Positive 07/07 Subjective Information Pt remains under airborne isolation precautions d/t COVID-19. RD bedside visitdeferred to minimize exposure. Per EMR review, pt s appetite remains varied, w/ intake ranging from 25-75% of meals served. Pt is not yet meeting adequate nutrition. Abdomen is soft and nondistended w/ active bowel sounds, no edema noted. Pt w/ less SOB and reports improved oxygenation per MD notes. Current Diet Order/Nutrition Support: CCHO, Glucerna BID x 4 days Pertinent Medications VIT C, decadron, lovenox, SSI, Metformin, zinc, VIT D. Pertinent Labs 07/12 BG 167 H, POC BG 240 H Height (Feet) 4 feet Height (Inches) 10.00 inches Weight (Pounds) 175 pounds (07/07) stable Weight (Calculated Kilograms) 79.988554 kilograms Patient Weight 79.379 kg Body Mass Index 36.57 kg/m2 Engelhard/Adjusted Body Weight IBW: 96#/44 kg. Adj IBW (obesity): 11#/53 kg Estimated Energy Expenditure (kcals/day) 7890-7583 kcal/day (30-35 kcal/kg Adj IBW d/t acute state) Estimated Protein Required (g/day) 64-80 gm/day (1.2-1.5 gm/kg Adj IBW d/t acute state) Estimated Fluid Required (l/day) 1.6-1.9 L/day (1 ml/kcal/day for maintenance) Problem/Etiology/Signs/Symptoms Increased nutritional needs related to metabolic demands as evidenced by estimated nutritional requirements for acute state. (*ongoing) Altered nutrition-related labs related to endocrine dysfunction as evidenced by elevated BG and POC BG lab values. (*ongoing) Expected Outcomes/Goals - Monitor appetite and PO intakes w/ goal of pt meeting at least 75% of estimated nutritional needs, labs trending WNL, normal GI function, and skin integrity/wt maintenance Dietitian Recommendations * Recommend continue CCHO diet w/ Glucerna BID (ONS provides 440 kcal/day, 40 gm protein/day) * Encourage increase PO intakes Follow Up Mod Risk: F/U in 3-5 days
--- NOTE | 2021-07-12 17:00 | NUR ---
EDUCATED PATIENT THAT MD HAS NOT ORDERED FOR DISCHARGE AT THIS TIME.
--- NOTE | 2021-07-12 17:30 | NUR ---
PATIENT LEFT AMA. EDUCATED PATIENT ON PLAN OF CARE AND WHY HOSPITALIZATION IS SUGGESTED TO CONTINUE, DESPITE REPEATED EDUCATION THE PATIENT DEMANDED TO LEAVE. AMA FORM WAS SINGED BY PATIENT AND PLACED IN CHART, IV WAS REMOVED, WRIST BAND REMOVED, DAUGHTER PICKED HER UP.
[2021-07-13] MEDS ORDERED: metFORMIN HCL 500 MG TABLET PO SCH (08:00)
== END 2021-07-12 17:30 | disposition left against medical advice (07) | DRG 177 ==
LOC: SED 17:56 → SMU 07-06 02:38
PROVIDERS: ADMIT Family Medicine; ATTEND Family Medicine
DX: U07.1 COVID-19 (principal); J12.82 Pneumonia due to coronavirus disease 2019; N12 Tubulo-interstitial nephritis, not specified as acute or chronic; B96.20 Unspecified Escherichia coli [E. coli] as the cause of diseases classified elsewhere; E11.65 Type 2 diabetes mellitus with hyperglycemia; R09.02 Hypoxemia; E66.9 Obesity, unspecified; Z68.36 Body mass index [BMI] 36.0-36.9, adult; Z79.899 Other long term (current) drug therapy
CPT/HCPCS: 36415; 71045; 72100-TC; 76770; 80048; 80053; 81000; 82150; 82728; 82962; 83036; 83690; 83735; 84100; 85025; 85379; 85610-TC; 85730-TC; 86140; 87086; 94760; 96361; 96365; 96375; 99285; J0456; J0696; J1100; J1650; J1815; J2270; J3480; J7050; J7060; J7626; U0003